=== PATIENT | female | born 1960 | race Caucasian/White ===

== ENCOUNTER 2019-01-19 16:45 | Outpatient (CLI) | payer SELFPAY ==
--- NOTE | 2019-01-19 11:59 | DI.RAD_ITS ---
SYMPTOMS/DIAGNOSIS: CHEST WALL PAIN, COUGH, R05 CHEST: Frontal and lateral views. No priors for comparison. The heart size and pulmonary vasculature are within normal limits. There is plate atelectasis in the left lung base. No focal consolidating infiltrates, effusions or pneumothoraces are identified. Degenerative changes are seen in the spine. IMPRESSION: No acute pulmonary process.
== END 2019-01-19 17:05 ==
PROVIDERS: PCP Physician Assistant; Visit Provider Physician Assistant Medical
DX: R07.89 Other chest pain (principal); R05 Cough
CPT/HCPCS: 71046

== ENCOUNTER → 2022-09-06 01:57 | Outpatient (CLI) | payer OTHER, SELFPAY ==
--- NOTE | 2022-09-06 08:00 | DI.MAMMO_ITS ---
Exam(s) MAMMO SCREENING EXAM: MAMMO SCREENING CLINICAL HISTORY: SCREENING, Z12.31 TECHNIQUE: Mammograms were interpreted according to the usual protocol including computer analysis w [employer] CAD system, tomosynthesis and C-view imaging. COMPARISON: FINDINGS: The breasts are of moderate density with fairly symmetrical distribution of fibroglandular tissue. N o dominant mass or clumped microcalcification is identified in either breast. The current examination is compared with previous examinations including January 2017. There are areas of new focal asymmetric density seen bilaterally. In the left breast, there is an area of new irreg ular radiodensity in the central portion of the left breast on MLO view with a couple of possibly cor responding areas of asymmetric density projected centrally on the CC view. In the right breast there are areas of new nodular density projected in the central superior portion of the right breast and retroareolar portion of the right breast on MLO view and laterally and retroa reolar CC view. Spot compression views of both breasts in CC and MLO projections and bilateral breast ultrasound debra mmended for further evaluation. IMPRESSION: Additional mammographic views of both breasts and bilateral breast ultrasound requested as described above. BI-RADS Category 0 - Assessment Incomplete: Need additional imaging evaluation Breast Density - Category B - Scattered areas of fibroglandular density
== END ==
PROVIDERS: PCP Physician Assistant; Visit Provider Physician Assistant
DX: Z12.31 Encounter for screening mammogram for malignant neoplasm of breast (principal); R92.8 Other abnormal and inconclusive findings on diagnostic imaging of breast
CPT/HCPCS: 77063; 77067

== ENCOUNTER → 2022-09-11 02:25 | Outpatient (CLI) | payer OTHER, SELFPAY ==
--- NOTE | 2022-09-11 | DI.US_ITS ---
Exam(s) US BREAST LT COMPLETE US BREAST RT COMPLETE MG MAMMO SCREEN CALL BACK BI EXAM: MG MAMMO SCREEN CALL BACK BI and bilateral complete breast ultrasound CLINICAL HISTORY: F/U MAMMO, LT BREAST ASYMMETRIC DENSITY, NEW NODULAR DENSITY RT BREAST. TECHNIQUE: Craniocaudal and mediolateral oblique Full Field Digital Mammography views of the bilater al breast with Computer Aided Diagnosis followed by Tomosynthesis and bilateral breast ultrasound. COMPARISON: Comparison is made with prior examinations. FINDINGS: Mammography/Tomosynthesis: Masses/Architectural Distortion: There is a persistent 5 mm opacity in the posterior central left dick ast best appreciated on the MLO view. It appears to lie medial to the nipple on the additional CC vi ews. It lies 4.6 cm from the nipple on the CC view. In the right breast there is a partially obscur ed ovoid 5 mm density in the outer right breast on the CC view. There is a well-circumscribed ovoid 7 mm nodule in the retroareolar region of the right breast. Microcalcifictions: No suspicious pleomorphic-type are seen. Skin Thickening/Nipple Retraction: None. Complete bilateral breast US: Echotexture: Normal appearance of the glandular tissue. Shadowing: No suspicious foci. Cyst: At the 12 o'clock position of the right breast 1 cm from the nipple, there is a well-circumscri bed radially oriented cyst present. This appears to correspond to the mammographic abnormality. It measures 6 mm in length. At the 8 o'clock position of the right breast, there is a lobulated 0.6 cm hypoechoic mass present. It is 3 cm from the nipple. There does appear to be some internal blood fl ow. A complete left breast ultrasound was performed. No cystic or solid masses are seen sonographic ally. Solid lesions: None seen. Ductal dilation: None. IMPRESSION: 1. 0.6 cm hypoechoic mildly vascular mass at the 8 o'clock position of the right breast 3 cm from the nipple. Persistent opacity in the posterior central left breast on the MLO view. Ultrasound showed no findings. 2. Further evaluation is warranted. A bilateral breast MRI may be considered 1st for further evaluat ion. 3. The findings were discussed with the patient on the date of the examination. BI-RADS Category 0 - Assessment Incomplete: Need additional imaging evaluation Breast Density - Category B - Scattered areas of fibroglandular density Breast density Category C or D implies that the patient has dense breast tissue. Dense breast tissue can make it harder to find cancer on a mammogram. Dense breast tissue is also associated with an incr eased risk of breast cancer. This information about the result of the mammogram report was provided to the patient to raise their awareness. Use this report when you speak with the patient about their risks for breast cancer, which includes their family history. At that time, you may recommend additional screening tests (Ultrasoun d or MRI) as these tests may add significant information. A negative radiographic report should not delay biopsy if a dominant or clinically suspicious mass is present. Up to ten percent of cancers are not identified on mammography. A negative report may reinforce clinical impression. Adenosis and dense breasts may obscure an underlying neoplasm. False positive reports average 6 to 10%. Patient will receive a letter notifying them of these results.
== END ==
PROVIDERS: PCP Physician Assistant; Visit Provider Physician Assistant
DX: Z12.31 Encounter for screening mammogram for malignant neoplasm of breast (principal); R92.8 Other abnormal and inconclusive findings on diagnostic imaging of breast
CPT/HCPCS: 76642; 77063; 77067

== ENCOUNTER 2023-01-18 09:40 | Outpatient (REF) | payer OTHER, SELFPAY ==
--- NOTE | 2023-01-18 08:30 | PAPFT_PTH ---
PATIENT: Tyra Fernandez LOC: [facility]#:[id number] AGE/SX: 62/F ROOM: RE01/18/[address]: Dedra Magaña : 1960 BED: DIS: 01/18/2023 SPEC #: [id number] RECD: 01/21/23 12:06 STATUS: AMAURY RESerafin #: [id number] AUGUST: 01/18/23 08:[address]: Dedra Magaña DEPT: [facility] Cytology RECD BY: Sindhu Solis Tissues: 1 - CX/ENDOCX FOR PAP SMEARS Procedures: PAP THIN PREP/UVM Screening HPV DNA PROBE Comments: [id number]
[2023-01-18 20:38] LABS: Hemoglobin A1C 5.3 % (<5.7)
[2023-01-18 20:48] LABS: ALT 22 U/L (14-59); AST 16 U/L (15-37); Albumin 4.1 g/dL (3.4-5.0); Alkaline Phosphatase 79 U/L (46-116); Anion Gap 4.8 mmol/L (3-11); BUN 11 mg/dL (7-18); CO2 32.2 mmol/L (21.0-32.0); CREATININE 0.8 mg/dL (0.55-1.02); Calcium 9.5 mg/dL (8.5-10.1); Calculated LDL 136 mg/dL (<100); Chloride 105 mmol/L (98-107); Cholesterol 221 mg/dL (<200); Estimated GFR 83.78 (mL/min/1.73m2); Glucose 95 mg/dL (74-106); HDL Cholesterol 53 mg/dL (40-60); Potassium 4.2 mmol/L (3.5-5.1); Sodium 142 mmol/L (136-145); TSH (W/Ref FT4) 2.29 uIU/mL (0.36-3.74); Total Protein 7.6 g/dL (6.4-8.2); Triglyceride 161 mg/dL (<150)
== END 2023-01-18 09:41 | disposition home or self-care (01) ==
LOC: NCHCN 09:40
PROVIDERS: PCP Physician Assistant; Visit Provider Physician Assistant
DX: Z00.00 Encounter for general adult medical examination without abnormal findings (principal); E66.3 Overweight; Z13.1 Encounter for screening for diabetes mellitus; Z83.3 Family history of diabetes mellitus; Z13.220 Encounter for screening for lipoid disorders; Z13.29 Encounter for screening for other suspected endocrine disorder; Z12.4 Encounter for screening for malignant neoplasm of cervix; Z01.419 Encounter for gynecological examination (general) (routine) without abnormal findings; Z11.51 Encounter for screening for human papillomavirus (HPV)
CPT/HCPCS: 80053; 80061; 88142; 83036; 84443; 87624

== ENCOUNTER → 2023-09-09 00:17 | Outpatient (CLI) | payer OTHER, SELFPAY ==
--- NOTE | 2023-09-09 | DI.MAMMO_ITS ---
Exam(s) MAMMO SCREENING EXAM: MAMMO SCREENING CLINICAL HISTORY: SCREENING BREAST CANCER Z12.31 HX ABNL MAMMO Z87.898 FAM HX Z80.3, PERS HX TECHNIQUE: Bilateral full field digital CC and MLO mammographic images were obtained with 3D tomosyn thesis and utilizing computer aided detection (CAD). COMPARISON: Available for comparison. FINDINGS: Masses/Architectural Distortion: Stable nodules are seen in both breasts. No areas of architectural distortion are seen. No new nodules are present. Microcalcifications: No suspicious pleomorphic-type are seen. Skin Thickening/Nipple Retraction: None. IMPRESSION: 1. No significant interval change with no specific features of malignancy noted. 2. Unless there is more urgent need, screening mammography is recommended, as per [place] [employer] guidelines. 3. Findings were discussed with the patient on the date of the examination. BI-RADS Category 2 - Benign Findings Breast Density - Category B - Scattered areas of fibroglandular density Breast density category C or D implies that the patient has dense breast tissue. Dense breast tissue is very common and is not abnormal but dense breast tissue can make it harder to find cancer on a ma mmogram. Also, dense breast tissue may increase their breast cancer risk. This information about the result of the mammogram report was provided to the patient to raise their awareness. Use this report when you speak with the patient about their risks for breast cancer, which includes their family hist ory. At that time, you may recommend for more screening tests (Ultrasound or MRI) as they might be us eful based on their risk. A negative radiographic report should not delay biopsy if a dominant or clinically suspicious mass is present. Up to ten percent of cancers are not identified on mammography. A negative report may reinforce clinical impression. Adenosis and dense breasts may obscure an underlying neoplasm. False positive reports average 6 to 10%. Patient will receive a letter notifying them of these results.
== END ==
PROVIDERS: PCP Physician Assistant; Visit Provider Physician Assistant
DX: Z12.31 Encounter for screening mammogram for malignant neoplasm of breast (principal); R92.323 Mammographic fibroglandular density, bilateral breasts; Z80.3 Family history of malignant neoplasm of breast
CPT/HCPCS: 77063; 77067

== ENCOUNTER 2024-09-10 02:22 | Outpatient (CLI) | payer OTHER, SELFPAY ==
--- NOTE | 2024-09-10 | DI.MAMMO_ITS ---
Exam(s) MAMMO SCREENING EXAM: MAMMO SCREENING CLINICAL HISTORY: Z12.31 Screening TECHNIQUE: Bilateral full field digital CC and MLO mammographic images were obtained with 3D tomosyn thesis and utilizing computer aided detection (CAD). COMPARISON: Available for comparison. FINDINGS: Masses/Architectural Distortion: There are stable bilateral breast nodules. No suspicious nodules or areas of architectural distortion are present. Microcalcifications: No suspicious pleomorphic-type are seen. Skin Thickening/Nipple Retraction: None. IMPRESSION: 1. No significant interval change with no specific features of malignancy noted. 2. Unless there is more urgent need, screening mammography is recommended, as per [place] [employer] guidelines. BI-RADS Category 2 - Benign Findings Breast Density - Category B - Scattered areas of fibroglandular density Breast density category C or D implies that the patient has dense breast tissue. Dense breast tissue is very common and is not abnormal but dense breast tissue can make it harder to find cancer on a ma mmogram. Also, dense breast tissue may increase their breast cancer risk. This information about the result of the mammogram report was provided to the patient to raise their awareness. Use this report when you speak with the patient about their risks for breast cancer, which includes their family hist ory. At that time, you may recommend for more screening tests (Ultrasound or MRI) as they might be us eful based on their risk. A negative radiographic report should not delay biopsy if a dominant or clinically suspicious mass is present. Up to ten percent of cancers are not identified on mammography. A negative report may reinforce clinical impression. Adenosis and dense breasts may obscure an underlying neoplasm. False positive reports average 6 to 10%. Patient will receive a letter notifying them of these results.
== END 2024-09-10 02:42 ==
PROVIDERS: PCP Physician Assistant; Visit Provider Physician Assistant
DX: Z12.31 Encounter for screening mammogram for malignant neoplasm of breast (principal); R92.323 Mammographic fibroglandular density, bilateral breasts; D24.9 Benign neoplasm of unspecified breast
CPT/HCPCS: 77063; 77067

== ENCOUNTER 2025-01-26 12:55 | Outpatient (REF) | payer OTHER, SELFPAY ==
[2025-01-26 20:51] LABS: ALT 26 U/L (14-59); AST 17 U/L (15-37); Albumin 4.1 g/dL (3.4-5.0); Alkaline Phosphatase 85 U/L (46-116); Anion Gap 5.6 mmol/L (3-11); BUN 11 mg/dL (7-18); CO2 30.4 mmol/L (21.0-32.0); CREATININE 0.8 mg/dL (0.55-1.02); Calcium 9.5 mg/dL (8.5-10.1); Calculated LDL 152 mg/dL (<100); Chloride 107 mmol/L (98-107); Cholesterol 232 mg/dL (<200); Estimated GFR 82.74 (mL/min/1.73m2); Glucose 98 mg/dL (74-106); HDL Cholesterol 56 mg/dL (>or=50); Potassium 4.3 mmol/L (3.5-5.1); Sodium 143 mmol/L (136-145); Total Protein 7.7 g/dL (6.4-8.2); Triglyceride 120 mg/dL (<150)
[2025-01-28 09:42] LABS: Hepatitis C Ab w Rflx HCV PCR Negative (Negative)
[2025-01-28 10:48] LABS: HIV-1/2 Ag & Ab Screen Negative (Negative)
== END 2025-01-26 12:56 | disposition home or self-care (01) ==
LOC: NCHCN 12:55
PROVIDERS: PCP Physician Assistant; Visit Provider Physician Assistant
DX: Z11.4 Encounter for screening for human immunodeficiency virus [HIV] (principal); Z11.59 Encounter for screening for other viral diseases; E78.5 Hyperlipidemia, unspecified
CPT/HCPCS: 80053; 80061; 86803; 87389

== ENCOUNTER 2025-03-31 00:17 | Outpatient (CLI) | payer OTHER, SELFPAY ==
--- NOTE | 2025-03-31 11:28 | DI.RAD_ITS ---
Exam(s) RF BARIUM SWALLOW EXAM: RF BARIUM SWALLOW CLINICAL HISTORY: Dysphagia, unspecified, R13.10 TECHNIQUE: 2D and realtime digital imaging was performed. CONTRAST MATERIAL: Thick and thin barium and barium tablet were administered. COMPARISON: MR MRI BREAST WO BILATERAL from 09/28/2022 FINDINGS: The PA and lateral chest films show normal heart size and clear lung sterling. The lateral fiberglass finisher view of the neck is shows degenerative disc changes at C3-4 and C6-7. And prostate fights project anteriorly at C6-7. Esophagus: The patient swallowed barium without difficulty. Noevidence for mucosal erosions. Nofol d thickening. No mass is visible. There is a mildly prominent cricopharyngeus impression. There is a small web anteriorly beneath this level. The barium tablet stuck briefly at this location. The ba rium tablet stuck briefly at the GE junction. No visible stricture. Motility: There is a normal primary stripping wave. No tertiary contractions were noted. There is no hiatal hernia. Nogastroesophageal reflux was observed during the exam. IMPRESSION: Mildly prominent cricopharyngeus impression. Small anterior web just below this level at which the b arium tablet leaf the stuck. The barium tablet also stuck at the GE junction with there is no visibl e stricture. RADIATION DOSE DELIVERED: izaiah Bowie=11.3 mGy
[2025-03-31] MEDS: Simethicone/Sod Bicarb/Cit Ac, 4 gram PACKET 1 PACKET PO (11:33)
[2025-03-31] MEDS: Barium Sulfate 700 MG TAB PO (11:33)
[2025-03-31] MEDS: Barium Sulfate 60% W/V 355 ML BTL PO (11:34)
[2025-03-31] MEDS: Barium Sulfate 98% W/W 140 ML BTL PO (11:35)
== END 2025-03-31 00:37 ==
LOC: DI 00:17
PROVIDERS: PCP Physician Assistant; Visit Provider Physician Assistant
DX: R13.13 Dysphagia, pharyngeal phase (principal)
CPT/HCPCS: 74221; J3490

== ENCOUNTER 2025-04-07 00:56 | Outpatient (CLI) | payer OTHER, SELFPAY ==
--- NOTE | 2025-04-07 13:26 | DI.RAD_ITS ---
Exam(s) XR FOOT RT COMPLETE EXAM: XR FOOT RT COMPLETE CLINICAL HISTORY: Right foot pain,m9.671. TECHNIQUE: 2D digital imaging was performed of the right foot. Three images were obtained. AP, obl ique and lateral views were obtained. COMPARISON: No exams were available for comparison FINDINGS: BONES: No acute fracture is present. No bony destructive lesion is seen. There are postsurgical arevalo es seen of the 1st metatarsal. Hammertoe deformities of the 3rd through 5th toes are noted. There i s an enthesophyte at the posterior calcaneus. JOINTS: No dislocation present. Moderate degenerative changes are seen at the 1st MTP joint. SOFT TISSUE: Normal. IMPRESSION: No acute abnormality. DATA REPOSITORY: RADIATION DOSE DELIVERED:
== END 2025-04-07 01:16 ==
PROVIDERS: PCP Physician Assistant; Visit Provider Podiatrist
DX: M79.671 Pain in right foot (principal)
CPT/HCPCS: 73630

== ENCOUNTER 2025-04-30 08:14 | Day surgery (SDC) | payer OTHER, SELFPAY ==
--- NOTE | 2025-04-29 20:24 | W.PM.DSUDISC ---
Date of service: 04/30/25 Discharge Plan Disposition Patient Disposition: Home Condition: Good Discharge Details Reason For Visit: EGD and colonoscopy Attending Provider: Ramesh Meneses Primary Care Provider: Dedra Magaña Home Meds and New Rx's Prescriptions: Continued omeprazole 40 mg capsule,delayed release(DR/EC) 40 mg PO DAILY TheraTears 1 EACH dropperette 1 drp OU QID Ocuvite with Lutein 1 TAB tablet 1 tab PO DAILY Citracal Plus Bone Density 1 EACH tablet 1 tab PO DAILY One-A-Day Maximum Formula 1 EACH tablet 1 tab PO DAILY omega 0-gzg-hrd-fish oil 1 EACH capsule 1 cap PO DAILY Discontinued bisacodyl [Dulcolax (bisacodyl)] 5 mg tablet,delayed release (DR/EC) 5 mg PO ONCE Qty: 4 0RF Rx Instructions: Take per colonoscopy instructions provided by ordering providers office polyethylene glycol 3350 17 gram/dose powder 17 g PO ONCE Qty: 238 0RF Rx Instructions: Take per colonoscopy instructions provided by ordering providers office Discharge Instructions Instructions: Peptic ulcers, Colon polyps Additional Instructions: Tyra, it was very nice meeting you today, and I hope you feel well this afternoon. 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 This is not obstructing the esophagus, and I am able to pass the camera beyond it with ease. These can be dilated, but yours is quite high, and I do not feel that I could safely perform that procedure here. Furthermore, a little skeptical that it is contributing a significant amount to your symptoms. The rest of your esophagus down to the bottom portion looks fairly normal. I did do some biopsies of all of this to rule out esophagitis as a source of your symptoms. The area where it connects onto your stomach has a little bit of mobility that does cause some mild obstruction of the lower esophagus. I suspect this is what caused the barium tablet to stick during your swallowing test. This is not an narrowing or stricture, rather a movement issue. To be honest, I am not sure that there is anything that can be done to improve this. I did do some biopsies of this to see if that reveals any other options. There was a small area of polypoid tissue in your stomach that I removed, and I will have the pathologist examined. The rest of your stomach generally looks very normal and healthy. You do have some inflammation in the first portion of your duodenum known as peptic duodenitis. Similar to the other parts of your stomach, I did some biopsies of this to confirm the diagnosis. If it is in fact, duodenitis, then I would recommend a medication similar to the omeprazole that you mentioned. With regards to your colonoscopy, I found 1 polyp today. I removed this during the procedure, and this will be tested along with the pathology specimens mentioned above. All of those results will take about a week or 2 to get back, but once my office has that information, we will be in touch with other recommendations. 1. If tolerated, consume a soft, low fiber diet for 1-2 days. 2. Do not drive, drink alcohol, operate machinery, make critical decisions, or do activities that require coordination or balance for 24 hours. 3. Because air was put into your colon during the procedure, expelling air from your rectum (passing gas or farting) is normal. 4. You may not have a bowel movement for 1-3 days because of the colonoscopy prep. This is normal. 5. You may experience a sore throat for 24 to 48 hours. You may use throat lozenges or gargle with warm salt water to relieve the discomfort. 6. Because air was put into your stomach during the procedure, you may experience some belching. 7. Go directly to the emergency room if you notice any of the following: Develop chills (warm to touch), or if you have a thermometer and your temperature is above 101 Difficulty breathing or difficultly swallowing Persistent vomiting Severe abdominal pain, other than gas cramps Severe chest pain Black, tarry stools Any bleeding ? exceeding one tablespoon 8. Call your physician if the site where your intravenous was started becomes red, swollen, painful, and warm to touch. 9. Your physician has reviewed your pre-procedure medications. Please continue to take those medications as previously ordered. You will be given specific information/education regarding any changes to your medications before leaving. Activity:: Activity as Tolerated Diet:: As Tolerated Discharge Orders Discharge Orders: Discharge Order (Routine); Ordered 04/29/25 Ordered By: Ramesh Meneses DS: Diagnosis Discharge Diagnosis (1) Dysphagia: Status: Acute Asessment and Plan: Follow-up on pathology results
--- NOTE | 2025-04-29 20:26 | W.PM.ENDDOP ---
Date of service: 04/30/25 Time of Service: 11:14 Endoscopy Report DATE OF PROCEDURE: 04/30/25 PRE-OP DIAGNOSIS: dysphagia and screening colonoscopy POST-OP DIAGNOSIS: other (Upper esophageal web, gastric polyp, peptic duodenitis; colon polyp) PROCEDURE: EGD with biopsies and colonoscopy with polypectomy SURGEON: Ramesh Meneses ANESTHESIA TYPE: General:No Airway ESTIMATED BLOOD LOSS: 10 PATHOLOGY: other (Esophageal biopsies, biopsies of gastroesophageal junction, gastric polyp, gastric body and antral biopsies, peptic ulcer biopsies; 0.25 cm flat colon polyp at 50 cm) COMPLICATIONS: None DISPOSITION: same day INDICATIONS: Brent is a 64 year old woman who needs a screening colonoscopy. She also has dysphagia with a barium swallow suggesting and esophageal web PREP: Miralax/Dulcolax PROCEDURE START TIME: 10:17 PROCEDURE END TIME: 10:46 COLONOSCOPY RETRACTION TIME: 9 FINDINGS: Upper esophageal web around 13 cm from the incisors; normal-appearing esophagus. Mobility of the GE junction causing intermittent partial obstruction, gastric polyp, peptic duodenitis; 0.25 cm flat colon polyp at 50 cm PROCEDURE DESCRIPTION: After the initiation of anesthesia, and with the assistance of a bite block, I advanced a standard gastroscope through the mouth past the hypopharynx and into the esophagus.? Under the direct vision of the scope, I advanced down the esophagus towards the stomach.? Just beyond the cricopharyngeus muscle is a small upper esophageal web. I am able to traverse this with ease. It is quite high, and in very close proximity to the cricopharyngeus, and despite several attempts to position the scope, I do not feel that this could safely be dilated here. As it was not causing significant obstruction, I continued with the procedure. I advanced down along the length of the esophagus into the stomach. The upper, mid, and lower esophagus were all normal and healthy appearing. The Z-line is regular at the GE junction measuring approximately 36 cm past the incisors. There is some mobility of the posterior wall of the upper portion of the stomach here, this causes some folding of the GE junction that could be contributing to some of the symptoms. It is not stenotic. There is no discrete masses here. I did do several cold forceps biopsies all along the GE junction to rule out more concerning pathology. I advanced down into the stomach and perform retroflexion. I do not appreciate any hiatal hernias. There is a small bit of polypoid tissue in the upper cardia of the stomach that was removed with cold forceps. The remainder of the gastric mucosa was normal and healthy appearing. I did not see any obvious gastric ulceration. I advanced down across the pylorus into the duodenum. There are several punctate areas of inflammation within the duodenum that appear consistent with simple peptic ulcer disease. Cold forceps biopsies were performed of this with minimal bleeding. Then brought the camera back up into the stomach. I performed some nondirected biopsies of the gastric antrum and body to rule out Helicobacter pylori using cold forceps. Then I brought the camera along the length of the esophagus 1 last time performing multiple nondirected cold forceps biopsies to rule out esophagitis. The camera was then advanced back down across the lower esophageal sphincter into the stomach prior to completely emptying the stomach. The camera was then removed. We then removed what needed in the left lateral decubitus position. I began by performing an external anorectal exam.? Perineum and skin were normal, as was the anal verge.? There was no evidence of external hemorrhoids.? Next, I performed a digital rectal exam.? I did not appreciate any abnormal findings.? Next, I advanced a colonoscope into the rectal vault.? I performed retroflexion.? This appeared normal using insufflation, I then advanced the colonoscope beyond the rectal folds and into the sigmoid colon before advancing towards the cecum.? The quality of the prep was adequate.? The scope was noted to be in the cecum by identification of the ileocecal valve and appendiceal orifice.? I then began withdrawing the colonoscope using repeated irrigation as necessary for full evaluation of the colonic mucosa. Around 50 cm from the anal verge was a 0.25 cm flat polyp. This was removed with cold forceps with minimal bleeding. ?Once the scope was withdrawn to the level of the rectum, great care was taken to examine portions of the rectal folds.? Finally, the scope was withdrawn and the patient was brought to the same-day surgery recovery unit as the anesthetic wore off. ?The findings and instructions were shared with the patient prior to discharge. The [place] bowel prep score from right to left was 3, 3, 3
[2025-04-30 08:31] VITALS: BP 99/59; PULSE 77; RESP 16; TEMP 36.3; O2SAT 97
[2025-04-30] MEDS: Lactated Ringers 1,000 ML 80 ML IV (08:49)
--- NOTE | 2025-04-30 09:34 | W.ANESPRE ---
General Info Date of Service Date Performed: 04/30/25 Height: 5 ft Weight: 69 kg Body Mass Index (BMI): 29.7 Surgical Procedure: Operation Date: 04/30/25 09:50 Proposed Procedure Side Surgeon p Colonoscopy/Gastroscopy Ramesh Meneses MD Meds Allergies and Home Medications Allergies Allergy/AdvReac Type Severity Reaction Status Date / Time No Known Allergies Allergy Verified 04/30/25 08:40 Home Medication ?Medication ?Instructions ?Recorded calcium 300 mg-vit D3 200 1 tab PO DAILY 03/15/15 [id number] 13.5 mg tablet (Citracal Plus Bone Density Builder) carboxymethylcellulose sodium 0.25 1 drp OU QID 03/15/15 % eye drops in a dropperette (TheraTears) vit A 300 mcg-C 200 mg-E 27 1 tab PO DAILY 03/15/15 mg-lutein 2 mg and minerals tablet (Ocuvite with Lutein) multivitamin with minerals 1 tab PO DAILY 03/18/15 (One-A-Day Maximum Formula tablet) omega 1-nkg-pex-fish oil 300 1 cap PO DAILY 03/18/15 mg-1,000 mg capsule omeprazole 40 mg capsule,delayed 40 mg PO DAILY 04/19/25 release Current Visit Medications: Current Medications Generic Name Dose Route Start Last Admin Trade Name Freq PRN Reason Stop Dose Admin Ringer's Solution 1,000 mls @ 80 mls/hr 04/30/25 06:00 04/30/25 08:49 IV 04/30/25 23:59 80 mls/hr INFUSION ARIANA Administration IV Miscellaneous Supplies 1 each 04/30/25 06:00 Iv Access IV 04/30/25 23:59 DIRECTED ARIANA Ondansetron HCl 4 mg 04/29/25 20:27 Ondansetron 4 Mg/2 Ml Vial IVP 05/29/25 20:26 Q4H PRN PRN Nausea / Vomiting Sodium Chloride 0 ml 04/30/25 06:00 Normal Saline Flush 10 Ml Syr IV 04/30/25 23:59 PRN PRN Sodium Chloride 0 ml 04/30/25 06:00 Normal Saline 10 Ml Vial IJ 04/30/25 23:59 DIRECTED PRN Sterile Water 0 ml 04/30/25 06:00 Water,Injection,Sterile 10 Ml Vial IJ 06/27/25 23:59 DIRECTED PRN PFSH Active Problems Active Problems: Problem Status Onset Code Dysphagia Acute R13.10 Pain in right foot Acute M79.671 Corns and callosities Acute L84 Porokeratosis Acute Q82.8 Plantar verruca Acute B07.0 Overweight Acute E66.3 Hyperlipidemia Acute E78.5 Medical History Medical History Family history of breast cancer in sister Diverticula of intestine Cholelithiasis Corneal dystrophy Surgical History Surgical History bunionectomy pin placed with bunion removal Tonsillectomy 2010 Tobacco Smoking/Tobacco Use Status: Never Alcohol Alcohol Intake: never Substance Use Substance use: Never Substance use type: does not use Vital Signs and Lab Results Vital Signs Most Recent Vital Signs in EMR: Most Recent Vital Signs Temp Pulse Resp BP Pulse Ox 36.3 C L 77 16 99/59 L 97 04/30/25 08:31 04/30/25 08:31 04/30/25 08:31 04/30/25 08:31 04/30/25 08:31 Anesthesia Assessment and Plan Anesthesia History Personal History: No History of Anesthesia Complications Family History: No Family History of Anesthesia Complications Exercise Tolerance Exercise Tolerance: Metabolic Equivalents>4 Pertinent Negatives Pertinent Negatives: No Symptoms of GERD, No Major Cardiovascular Symptoms or Complaints and No Major Pulmonary Symptoms or Complaints Cardiac & Pulmonary Exam Cardiac Exam: Normal S1/S2 Heart Sounds Pulmonary Exam: Clear Bilateral Breath Sounds Implantable Cardiac Device Does patient have a Pacemaker or an ICD?: No Airway Exam Known Difficult Airway: No Mallampati Class: 3 Mouth Opening: Normal (> 3cm) Thyromental Distance: Greater than 3 cm Neck Range of Motion: Full ROM Neck Circumference: Normal Teeth Condition: Normal Dentition ASA Classification ASA Score: ASA 2 Emergency Case?: No NPO Status NPO Status: NPO Clears >2 hours, Solids >8 hours Anesthesia Plan Resuscitation Status: Full Code Anesthesia Technique: General Anesthesia Airway Planned: Natural Airway Monitors Used: Standard Monitors Preoperative Comments:: 64 y/o female with history of HLD and obesity presents for colonoscopy screening. Her last screening was in 2014, which was remarkable for mild right sided diverticulosis.
[2025-04-30 10:01] VITALS: BMI 29.7
--- NOTE | 2025-04-30 10:20 | BOWEL_PTH ---
PATIENT: Tyra Fernandez LOC: [facility] U#:[id number] AGE/SX: 64/F ROOM: RE04/30/[address]: Ramesh Meneses MD : [id number] BED: DIS: 04/30/2025 SPEC #: [id number] RECD: 04/30/25 12:48 STATUS: AMAURY REQ #: [id number] AUGUST: 04/30/25 10:[address]: Ramesh Meneses DEPT: Surgical Specimen RECD BY: Sindhu Solis ENTERED: 04/30/25 12:51 SP TYPE: Bowel OTHR DR: Dedra Magaña Tissues: 1 - BIOPSY BOWEL 2 - STOMACH BIOPSY 3 - STOMACH BIOPSY 4 - STOMACH BIOPSY 5 - ESOPHAGUS BIOPSY 6 - ESOPHAGUS BIOPSY 7 - BIOPSY BOWEL Procedures: GROSS AND MICRO LEVEL 4 SPECIAL STAIN 1 Comments: [id number]
[2025-04-30 10:54] VITALS: BP 100/60; PULSE 76; RESP 17; TEMP 36.5; O2SAT 98
--- NOTE | 2025-04-30 11:03 | W.ANESPOSTOP ---
Postoperative Evaluation Date, Time and Location Date Performed: 04/30/25 Time Performed: 11:03 Patient Location: Day [facility] Unit Vital Signs Most Recent Imported Vital Signs: Most Recent Vital Signs Temp Pulse Resp BP Pulse Ox 36.5 C 76 17 100/60 98 04/30/25 10:54 04/30/25 10:54 04/30/25 10:54 04/30/25 10:54 04/30/25 10:54 Pain Score Most Recent Pain Score: Most Recent Pain Score Pain Level 0 04/30/25 08:31 Assessment Mental Status: Awake (Alert & Oriented to Patient Baseline) Airway and Respiratory Function: Patent airway with normal (patient baseline) respiratory exam Cardiovascular Function: Hemodynamically Stable Hydration Status: Adequately Hydrated Nausea & Vomiting: No Nausea or Vomiting Pain: Pt. Denies Any Pain Peripheral Nerve Block: Patient did not receive a nerve block
[2025-04-30 11:20] VITALS: BP 101/62; PULSE 66; RESP 20; TEMP 36.5; O2SAT 97
== END 2025-04-30 11:52 | disposition home or self-care (01) ==
LOC: SUR 08:14
PROVIDERS: PCP Physician Assistant; Visit Provider Surgery
PROC: (CPT 45380; principal; 2025-04-30 09:45)
DX: Z12.11 Encounter for screening for malignant neoplasm of colon (principal); R13.10 Dysphagia, unspecified; D12.5 Benign neoplasm of sigmoid colon; K29.80 Duodenitis without bleeding; K22.82 Esophagogastric junction polyp; K22.89 Other specified disease of esophagus; K31.89 Other diseases of stomach and duodenum
CPT/HCPCS: 45380; 43239; 88305; 88312; J2003; J2704

== ENCOUNTER → 2025-09-13 02:20 | Outpatient (CLI) | payer OTHER, SELFPAY ==
--- NOTE | 2025-09-13 | DI.MAMMO_ITS ---
Exam(s) MAMMO SCREENING EXAM: MAMMO SCREENING CLINICAL HISTORY: SCREENING MAMMO Z80.3 FAM HX BREAST CA. TECHNIQUE: Bilateral full field digital CC and MLO mammographic images were obtained with 3D tomosynthesis and utilizing computer aided detection (CAD). COMPARISON: Prior mammograms were reviewed. FINDINGS: There has been no significant change in the appearance and distribution of the fibroglandular tissue. Small benign-appearing nodules both breasts remain unchanged. There are no new spiculated masses nor new malignant appearing microcalcification groups. There is no significant architectural distortion nor skin thickening-retraction. IMPRESSION: Stable benign-appearing findings. No radiographic evidence of malignancy. BI-RADS Category 2 - Benign Findings Breast Density - Category B - There are scattered areas of fibroglandular density. Breast density Category C or D implies that the patient has dense breast tissue. Dense breast tissue can make it harder to find cancer on a mammogram. Dense breast tissue is also associated with an increased risk of breast cancer. This information about the result of the mammogram report was provided to the patient to raise their awareness. Use this report when you speak with the patient about their risks for breast cancer, which includes their family history. At that time, you may recommend additional screening tests (Ultrasound or MRI) as these tests may add significant information. A negative radiographic report should not delay biopsy if a dominant or clinically suspicious mass is present. Up to ten percent of cancers are not identified on mammography. A negative report may reinforce clinical impression. Adenosis and dense breasts may obscure an underlying neoplasm. False positive reports average 6 to 10%. Patient will receive a letter notifying them of these results.
== END ==
LOC: DI 02:20
PROVIDERS: PCP Physician Assistant; Visit Provider Physician Assistant
DX: Z80.3 Family history of malignant neoplasm of breast (principal); Z12.31 Encounter for screening mammogram for malignant neoplasm of breast
CPT/HCPCS: 77063; 77067